=== PATIENT | female | born 1950 | race Caucasian/White ===

== ENCOUNTER → 2021-06-10 12:58 | Outpatient (CLI) | payer MEDICARE, SELFPAY ==
--- NOTE | ~2021-06-10 | DEXA_ITS ---
Bone Density Report Name: Maggie Maldonado Age: 70 Sex: Female Ethnicity: White Date of : 1950 Indication: postmenopausal; screening for osteoporosis; height loss; prior fracture; Referring Provider: ADAN FRIEND Study: Bone densitometry was performed. Exam Date: June 10, 2021 Accession number: [id number] Bone Density: Region BMD T-score Z-score Classification AP Spine (L1-L4) 0.881 -1.5 0.6 Osteopenia Femoral Neck (Left) 0.774 -0.7 1.1 Normal Total Hip (Left) 0.936 0.0 1.5 Normal Femoral Neck (Right) 0.807 -0.4 1.4 Normal Total Hip (Right) 0.941 0.0 1.5 Normal Total Hip Mean 0.939 0.0 1.5 Normal World Health Organization criteria for BMD impression classify patients as: Normal (T-score at or above -1.0), Osteopenia (T-score between -1.0 and -2.5), or Osteoporosis (T-score at or below -2.5). 10-year Fracture Risk(1): Major Osteoporotic Fracture 12% Hip Fracture 1.0% Reported Risk Factors: [place] (), Neck BMD=0.774, BMI=34.1, previous fracture (1) FRAX(R) Version 3.08. Fracture probability calculated for an untreated patient. Fracture probability may be lower if the patient has received treatment. Clinical Information Provided by Patient: Has had a low trauma fracture Has used the following medications: Vitamin D Patient maximum height was 61 Menopause Age: 54 No regular weight bearing exercise Does not regularly consume dairy products Drinks caffeinated beverages Onset of menses at age 11 Number of children 2 Impression: The patient has low bone mass, based on the Total Spine T-score. The patient has an estimated ten-year risk of hip fracture of 1% and an estimated ten-year risk of major fracture of 12%, based on the WHO FRAX algorithm. The patient has risk factors, including: previous fracture. Discussion: BONE DENSITY IS LOW AT ONE OR MORE SKELETAL SITES. This patient's lowest T-score is low at one or more skeletal sites. It meets the World Health Organization's (WHO) criteria for ?low bone mass? (T-score between -1.0 and -2.5). The patient's 10-year risk of fracture as calculated by FRAX is less than the threshold where pharmacological therapy is recommended by the National Osteoporosis Foundation (NOF). However, all treatment decisions require clinical judgment and consideration of individual patient factors, including patient preferences, comorbidities, previous drug use, risk factors not captured in the FRAX model (e.g., frailty, falls, vitamin D deficiency, increased bone turnover, interval significant decline in bone density) and possible under or overestimation of fracture risk by FRAX. The patient should follow a healthful lifestyle (good nutrition with adequate calcium and vitamin D, and appropriate weight-bearing exercise). Follow-Up: Consider
--- NOTE | ~2021-06-10 | MM_ITS ---
EXAMINATION: MM screening [facility] BI w femi HISTORY: Screening mammogram TECHNIQUE: Craniocaudal and mediolateral oblique 3-D tomosynthesis images were obtained and synthetic 2-D images were generated. CAD analysis was submitted and interpreted. COMPARISON: 06/20/2019, 04/06/2018, 02/14/2017 BREAST PARENCHYMAL COMPOSITION: There are scattered areas of fibroglandular density. FINDINGS: There is no evidence of suspicious mass, calcification, or architectural distortion to sugg est malignancy in either breast. There has been no suspicious interval change. IMPRESSION: 1. No mammographic evidence of malignancy. 2. Recommend routine screening mammography in one year. BI-RADS Category 1: Negative Reviewed, dictated and finalized at location A.
== END ==
PROVIDERS: Visit Provider Obstetrics & Gynecology Gynecology
DX: Z12.31 Encounter for screening mammogram for malignant neoplasm of breast (principal); M85.88 Other specified disorders of bone density and structure, other site
CPT/HCPCS: 77063; 77067; 77080

== ENCOUNTER → 2022-01-06 09:52 | Outpatient (CLI) | payer MEDICARE, SELFPAY ==
--- NOTE | ~2022-01-06 | XR_ITS ---
EXAMINATION: XR bone survey comp/metastic DATE: 01/06/2022 11:06 INDICATION: Paget disease. Elevated alkaline phosphatase. TECHNIQUE: 30 views of a skeletal survey were obtained. COMPARISON: None. FINDINGS: There is plate and screw fixation of distal right fibula. There is a screw in right medial malleolus. There is mild osteoarthritis of the hips and knees. Cardiomegaly is noted. There is modera te cervical spondylosis and mild thoracic spondylosis. There is mild lumbar spondylosis. IMPRESSION: 1. No evidence of Paget disease. Reviewed, dictated and finalized at location B.
== END ==
DX: M47.813 Spondylosis without myelopathy or radiculopathy, cervicothoracic region (principal); M16.0 Bilateral primary osteoarthritis of hip; M17.0 Bilateral primary osteoarthritis of knee; I51.7 Cardiomegaly
CPT/HCPCS: 77075

== ENCOUNTER → 2023-03-26 10:51 | Outpatient (CLI) | payer MEDICARE, SELFPAY ==
--- NOTE | ~2023-03-26 | MM_ITS ---
EXAMINATION: MM screening [facility] BI w femi HISTORY: Screening mammogram TECHNIQUE: Craniocaudal and mediolateral oblique 3-D tomosynthesis images were obtained and synthetic 2-D images were generated. CAD analysis was submitted and interpreted. COMPARISON: 06/10/2021, 06/20/2018, 02/14/2017 bilateral screening mammogram examinations BREAST PARENCHYMAL COMPOSITION: There are scattered areas of fibroglandular density. FINDINGS: Scattered bilateral occasional benign calcifications. Stable asymmetric density in the ante rior outer mid right breast. There is no evidence of suspicious mass, calcification, or architectural distortion to suggest malignancy in either breast. There has been no suspicious interval change. IMPRESSION: 1. No mammographic evidence of malignancy. 2. Recommend routine screening mammography in one year. BI-RADS Category 2: Benign finding(s). Reviewed, dictated and finalized at location A.
== END ==
PROVIDERS: PCP Obstetrics & Gynecology Gynecology; Visit Provider Obstetrics & Gynecology Gynecology
DX: Z12.31 Encounter for screening mammogram for malignant neoplasm of breast (principal)
CPT/HCPCS: 77063; 77067

== ENCOUNTER → 2023-06-13 10:59 | Outpatient (CLI) | payer MEDICARE, SELFPAY ==
--- NOTE | ~2023-06-13 | DEXA_ITS ---
Bone Density Report Name: QIAN CM Age: 72 Sex: Female Ethnicity: White Date of : 1950 Indication: osteopenia; height loss; prior fracture;postmenopausal Referring Provider: KEN, RENETTA Abreu Study: Bone densitometry was performed. Exam Date: June 13, 2023 Accession number: [id number] Bone Density: Region BMD T-score Z-score Classification AP Spine (L1-L4) 0.902 -1.3 0.9 Osteopenia Femoral Neck (Left) 0.691 -1.4 0.5 Osteopenia Total Hip (Left) 0.891 -0.4 1.2 Normal Femoral Neck (Right) 0.776 -0.7 1.3 Normal Total Hip (Right) 0.909 -0.3 1.4 Normal Total Hip Mean 0.900 -0.4 1.3 Normal World Health Organization criteria for BMD impression classify patients as: Normal (T-score at or above -1.0), Osteopenia (T-score between -1.0 and -2.5), or Osteoporosis (T-score at or below -2.5). 10-year Fracture Risk(1): Major Osteoporotic Fracture 15% Hip Fracture 2.3% Reported Risk Factors: [place] (), Neck BMD=0.691, BMI=32.0, previous fracture (1) FRAX(R) Version 3.08. Fracture probability calculated for an untreated patient. Fracture probability may be lower if the patient has received treatment. Previous Exams: Region Exam Age BMD T-score BMD Change BMD Change Date g/cm2 vs Baseline vs Previous AP Spine(L1-L4) 06/13/2023 72 0.902 -1.3 0.021 0.021 06/10/2021 70 0.881 -1.5 Total Hip(Left) 06/13/2023 72 0.891 -0.4 -0.045* -0.045* 06/10/2021 70 0.936 0.0 Total Hip(Right) 06/13/2023 72 0.909 -0.3 -0.032* -0.032* 06/10/2021 70 0.941 0.0 *Denotes significance at 95% confidence level, LSC for AP Spine = 0.022 g/cm2, LSC for Total Hip = 0.027 g/cm2 Clinical Information Provided by Patient: Has had a low trauma fracture Has used the following medications: Vitamin D, Calcium Patient maximum height was 61 Menopause Age: 54 No regular weight bearing exercise Does not regularly consume dairy products Drinks caffeinated beverages Onset of menses at age 11 Number of children 2 Impression: The patient has low bone mass, based on the Left Femoral Neck T-score. The patient has an estimated ten-year risk of hip fracture of 2.3% and an estimated ten-year risk of major fracture of 15%, based on the WHO FRAX algorithm. The patient has risk factors, including: previous fracture. The BMD for the Total Hip(Left) decreased, changing by -0.045 since the last DXA exam. T
== END ==
PROVIDERS: PCP Internal Medicine; Visit Provider Internal Medicine
DX: Z78.0 Asymptomatic menopausal state (principal); M85.89 Other specified disorders of bone density and structure, multiple sites
CPT/HCPCS: 77080

== ENCOUNTER 2023-10-29 00:10 | Emergency (ER) | payer MEDICARE, SELFPAY ==
--- NOTE | ~2023-10-29 | CT_ITS ---
EXAMINATION: CT brain wo con DATE: 10/29/2023 02:20 INDICATION: Status post fall. Head injury. TECHNIQUE: Computed tomography (CT) of the head was performed without intravenous contrast. The dose- length product was 681.00 mGy-cm. Automated exposure control and iterative reconstruction technique w ere employed. COMPARISON: None FINDINGS: Mild generalized atrophy. There are scattered moderate periventricular and subcortical whit e matter changes, most likely related to small vessel ischemic disease (microangiopathy). No acute in farction, hemorrhage, mass or mass effect. No ventriculomegaly or midline shift. Paranasal sinuses an d mastoids are pneumatized. No depressed skull fractures. IMPRESSION: 1. No acute intracranial abnormality. Reviewed, dictated and finalized at location A. UTIVE RECEPTIONIST
--- NOTE | ~2023-10-29 | XR_ITS ---
XR humerus LT 10/29/2023 03:01 Indication: Left arm fracture post reduction Procedure: Single AP view of the left humerus Comparison: 10/29/2023 Findings: There is improved alignment. No significant overriding of fracture fragments on current nick dy. There is persistent lateral displacement. Cannot exclude rotation. No other fracture is seen. Impression: 1: Improved alignment of midshaft fracture left humerus post reduction. Persistent lateral displaceme nt approximately one bone width. Reviewed, dictated and finalized at location A. 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 Persist ent lateral displacement approximately one bone width.
--- NOTE | ~2023-10-29 | XR_ITS ---
XR forearm LT 2V, XR humerus LT 10/29/2023 00:56 (accession [id number]), 10/29/2023 00:59 (accession [id number]) Indication: Left arm pain after fall. Procedure: Single view left forearm 2 views left humerus Comparison: No prior studies for comparison. Findings: There is a possible nondisplaced radial head fracture. Recommend correlation with left elbo w series. No other fracture. No foreign bodies. There is a displaced left humerus fracture with overr iding of fracture fragments and posterior lateral displacement. There is dorsal angulation.. Impression: 1: Possible nondisplaced radial head fracture. Recommend correlation with elbow series. 2: Displaced left humerus fracture with overriding of fracture fragments and posterior lateral displ acement with dorsal angulation. Reviewed, dictated and finalized at location A. 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 Recommend correlation with elbow series. 2: Displaced left humerus fracture with overriding of fracture fragments and p osterior lateral displacement with dorsal angulation. Impression: 1: Possible nondisplaced radial head fracture. Recommend correlation with elbow series. 2: Displaced left humerus fracture with overriding of fracture fragments and p osterior lateral displacement with dorsal angulation.
[2023-10-29 00:08] VITALS: BP 136/52; PULSE 83; RESP 18; TEMP 36.2; O2SAT 98
[2023-10-29 00:16] VITALS: BP 136/52; PULSE 84; RESP 13; O2SAT 100
[2023-10-29 00:32] VITALS: BP 127/63; PULSE 84; RESP 17; O2SAT 97
[2023-10-29] MEDS: HYDROmorphone HCL INJ (*CRX) 1 MG/ML SYR 0.5 MG IV PUSH ×2 (01:33→02:21)
[2023-10-29] MEDS: ACETAMINOPHEN 500 MG TABLET 1000 MG PO (01:39)
[2023-10-29] MEDS: KETOROLAC 15 MG/ML VIAL (*BKC) IV PUSH (01:39)
[2023-10-29 02:02] VITALS: BP 133/72; PULSE 96; RESP 20; O2SAT 91
[2023-10-29 02:03] VITALS: BP 133/72; PULSE 96; RESP 21; O2SAT 95
--- NOTE | 2023-10-29 03:03 | ED.GENADULT ---
HPI - General Adult General Chief complaint: Extremity Injury, Upper Stated complaint: left arm deformity after glf down 3-4 stairs Time Seen by Provider: 10/29/23 01:22 History of Present Illness HPI narrative: This is a 72-year-old female presenting after a fall. She fell down 3 steps landed on her left side. She immediately had pain deformity in her left upper arm. She also believes she struck the back of her head but she is unsure. Patient denies any other injuries. No numbness tingling weakness to her left hand. Related Data Allergies Allergy/AdvReac Type Severity Reaction Status Date / Time No Known Allergies Allergy Unknown Verified 10/29/23 00:17 Exam Narrative: APPEARANCE: No apparent distress. Head: atraumatic. EYES: EOMI, NOSE: Atraumatic NECK: Trachea midline RESPIRATORY: No increased rate of breathing CARDIOVASCULAR: RRR, ABDOMINAL: Non-distended MUSCULOSKELETAl: Deformity to the left upper extremity. Pulses intact. Radian ulnar median nerve motor function intact NEURO: Alert. Moving 4/4 extremities SKIN:: Warm, dry. Normal color PSYCHIATRIC: Normal affect Course Vital Signs Vital signs: Vital Signs Temperature 97.2 F L 10/29/23 00:08 Pulse Rate 83 10/29/23 00:08 Respiratory Rate 18 10/29/23 00:08 Blood Pressure 136/52 L 10/29/23 00:08 Pulse Oximetry 98 10/29/23 00:08 Oxygen Delivery Room Air 10/29/23 00:08 Temperature 97.2 F L 10/29/23 00:08 Pulse Rate 95 10/29/23 04:00 Respiratory Rate 21 H 10/29/23 04:00 Blood Pressure 133/72 10/29/23 02:03 Pulse Oximetry 91 10/29/23 04:00 Oxygen Delivery Room Air 10/29/23 00:08 Procedures Orthopedic Fracture Reduction Fracture #1: Fracture Reduction date: 10/29/23 Time Out Performed: Yes Side: right Fracture Reduction Location: humerus Analgesia: other (dilaudid) Pre-Procedure Neuro Vascular Exam: normal Technique: traction/counter-traction Post Reduction X-rays Demonstrate: acceptable reduction Post-reduction neuro exam: intact Post-reduction vascular exam: intact Splint Applied: Yes Patient Tolerated Procedure: well Orthopedic Splinting/Casting Injury #1: Side: left Upper Extremity Injury Location: upper arm Splint: customized in ED (coaptation splint) OCL: coaptation Pre-Procedure Neuro Vascular Exam: normal Post-Procedure Neuro Vascular Exam: normal Other Orthopedic Equipment: other (sling) Medical Decision Making MDM Narrative Medical decision making narrative: -Course: 72-year-old female presenting call fall. X-ray showed a midshaft humerus fracture. This was reduced and placed in a coaptation splint with adequate reduction. CT brain read Delayed due to stat read. Patient family did not want wait for the results. They are comfortable being call if any abnormal results resulted. -DDX includes but is not limited to: Humerus fracture, intracranial hemorrhage, soft tissue injury -Hx from independent Sources: @ bedside -Independent interpretation of studies: Initial humerus x-ray showed a mid shaft humerus fracture. Reduction x-ray showed improvement. CT head negative. -Procedures: Humerus reduction with splint placement -Interventions: Tylenol, Toradol, Dilaudid 0.5 mg x 2 -Shared decision making / Disposition: Discharged Vital Signs Vital Signs: Vital Signs Temperature 97.2 F L 10/29/23 00:08 Pulse Rate 83 10/29/23 00:08 Respiratory Rate 18 10/29/23 00:08 Blood Pressure 136/52 L 10/29/23 00:08 Pulse Oximetry 98 10/29/23 00:08 Oxygen Delivery Room Air 10/29/23 00:08 Temperature 97.2 F L 10/29/23 00:08 Pulse Rate 95 10/29/23 04:00 Respiratory Rate 21 H 10/29/23 04:00 Blood Pressure 133/72 10/29/23 02:03 Pulse Oximetry 91 10/29/23 04:00 Oxygen Delivery Room Air 10/29/23 00:08 Discharge Plan Discharge Clin
[2023-10-29 04:00] VITALS: PULSE 95; RESP 21; O2SAT 91
== END 2023-10-29 04:35 | disposition home or self-care (01) ==
LOC: ANHED 03:20
PROVIDERS: Emergency Provider Emergency Medicine; PCP Internal Medicine
DX: S42.302A Unspecified fracture of shaft of humerus, left arm, initial encounter for closed fracture (principal); R93.6 Abnormal findings on diagnostic imaging of limbs; W10.9XXA Fall (on) (from) unspecified stairs and steps, initial encounter
CPT/HCPCS: 23605; 24505; 70450; 73060; 73090; 96374; 96375; 96376; 99285; A4565; A9270; J1170; J1885

== ENCOUNTER 2024-11-06 12:13 | Outpatient (CLI) | payer MEDICARE, SELFPAY | END 2024-11-06 12:14 | disposition home or self-care (01) | LOC: MICIMG 12:14 | PROVIDERS: PCP Internal Medicine; Visit Provider Obstetrics & Gynecology Gynecology | DX: Z12.31 Encounter for screening mammogram for malignant neoplasm of breast (principal) | CPT/HCPCS: 77063; 77067 ==